=== PATIENT | female | born 1945 | race Native Hawaiian/Other Pacific Islander ===

== ENCOUNTER 2018-11-25 08:25 | Day surgery (SDC) | payer MEDICARE, OTHER ==
[~2018-11-25] VITALS: Ht 154.9 cm; Wt 64.5 kg
[~2018-11-25 08:25] MED LIST: ACET-66 PO; ALLO100T PO; AMLO5TAB9 PO; AZIT250T9 PO; CALCIUM; GLIP10 PO; [UNRECOGNIZED DRUG - CODE] PO
[2018-11-25] MEDS ORDERED: METOPROLOL TARTRATE 50 MG TABLET ONE (08:46)
[2018-11-25] MEDS ORDERED: METOPROLOL TARTRATE 50 MG TABLET PO ONE (09:00)
[2018-11-25] MEDS ORDERED: 0.9% SODIUM CHLORIDE 10 ML SYRINGE IVP PRN (09:00)
[2018-11-25 09:16] LABS: CALCIUM, TOTAL 9.5 mg/dL (8.8-10.5); CREATININE 2.18 mg/dL (0.60-1.30); POTASSIUM 4.2 mmol/L (3.5-5.1)
== END 2018-11-25 09:45 | disposition home or self-care (01) ==
LOC: SURGERY 08:25 → EDSTATUS 10:30
PROVIDERS: ATTEND Internal Medicine Cardiovascular Disease
DX: R07.9 Chest pain, unspecified (principal); E78.1 Pure hyperglyceridemia; I13.0 Hypertensive heart and chronic kidney disease with heart failure and stage 1 through stage 4 chronic kidney disease, or unspecified chronic kidney disease; E11.22 Type 2 diabetes mellitus with diabetic chronic kidney disease; N18.9 Chronic kidney disease, unspecified; K21.9 Gastro-esophageal reflux disease without esophagitis; M10.9 Gout, unspecified; Z79.82 Long term (current) use of aspirin; Z79.899 Other long term (current) drug therapy; Z90.710 Acquired absence of both cervix and uterus; Z98.49 Cataract extraction status, unspecified eye; Z96.651 Presence of right artificial knee joint; Z98.890 Other specified postprocedural states; Z53.8 Procedure and treatment not carried out for other reasons
CPT/HCPCS: 93005